=== PATIENT | female | born 1970 | race Caucasian/White ===

== ENCOUNTER 2023-07-30 11:58 | Inpatient (IN) | payer MEDICARE ==
[2023-07-30] VITALS (12 sets, daily range): BP systolic 55–164; BP diastolic 45–103; PULSE 42–89; RESP 6–22; TEMP 93.3–94.5; O2SAT 100
[~2023-07-30] VITALS: Ht 165.1 cm; Wt 104.3 kg
[~2023-07-30 11:58] MED LIST: ADDERALL 10 MG10 MG PO; ALBUTEROL SULFAT2 MG PO; AMLODIPINE BESY10 MG PO; COMPLEX B-1001 EACH PO; IBUPROFEN200 MG PO; KRILL OIL 1,001 EACH PO; LATUDA20 MG PO; LEVOTHYROXINE50 MCG PO; LEXAPRO20 MG PO; LISINOPRIL10 MG PO; LYRICA75 MG PO; PROVENTIL HFA6.7 GM INH; VALIUM10 MG PO; VITAMIN D3 COM1 EACH PO
[2023-07-30] MEDS ORDERED: CALCIUM CHLORIDE 10% 1.36 MEQ/ML 10ML SYR IV ONE (12:05)
[2023-07-30] MEDS ORDERED: EPINEPHRINE HCL SYRINGE ONE (12:05)
[2023-07-30] MEDS ORDERED: SODIUM BICARBONATE 8.4% INJ 50 ML SYR ONE (12:05)
[2023-07-30] MEDS ORDERED: ROCURONIUM BROMIDE 10 MG/ML 5ML VIAL IV ONE (12:11)
[2023-07-30] MEDS ORDERED: NEOSTIGMINE 1 MG/ML 10ML VIAL ONE ×2 (12:11→16:57)
[2023-07-30] MEDS ORDERED: SEVOFLURANE INHAL SOLN 250 ML PEN BTL ONE (12:11)
[2023-07-30] MEDS ORDERED: DEXAMETHASONE SOD PHOS INJ 4 MG/ML SDV ONE (12:11)
[2023-07-30] MEDS ORDERED: PROPOFOL IV EMULSION 10 MG/ML 20 ML VIAL ONE (12:11)
[2023-07-30] MEDS ORDERED: LIDOCAINE HCL 2% LOCAL INJ 5 ML SDV VIAL INJ ONE (12:11)
[2023-07-30] MEDS ORDERED: ONDANSETRON HCL INJ 2MG/ML 2ML 2 MG/ML VIAL ONE (12:11)
[2023-07-30] MEDS ORDERED: EPHEDRINE SULFATE INJ 50 MG/ML VIAL ONE (12:11)
[2023-07-30] MEDS ORDERED: GLYCOPYRROLATE INJ 0.2 MG/ML VIAL ONE (12:11)
[2023-07-30] MEDS ORDERED: MIDAZOLAM HCL 5 MG/ML VIAL ONE (12:16)
[2023-07-30] MEDS ORDERED: MIDAZOLAM HCL 2 MG/2 ML VIAL ONE ×2 (12:16→12:17)
[2023-07-30] MEDS ORDERED: CEFAZOLIN SODIUM 2 GM ONE (12:16)
[2023-07-30] MEDS ORDERED: LACTATED RINGER'S 1,000 ML ONE (12:16)
[2023-07-30] MEDS ORDERED: FENTANYL CITRATE/PF 100MCG/2 ML INJ ONE (12:17)
[2023-07-30] MEDS ORDERED: HEPARIN SOD/SOD CHLORIDE 1,000 ML ONE (12:26)
[2023-07-30] MEDS ORDERED: TYLENOL EXTRA500 MG PO (13:53)
[2023-07-30] MEDS ORDERED: MORPHINE SULFATE/PF 1 MG/1 ML 10ML VIAL ONE (14:25)
[2023-07-30] MEDS ORDERED: MORPHINE SULFATE 1 MG/ML 30ML PCA IV PRN (15:15)
[2023-07-30] MEDS: SODIUM CHLORIDE 0.9% 250ML IRRIG IR SCH ×3 (15:15→23:15)
[2023-07-30] MEDS ORDERED: NALOXONE HCL INJ 0.4 MG/ML AMP IV PRN (15:15)
[2023-07-30] MEDS ORDERED: DIPHENHYDRAMINE HCL INJ 50 MG/ML VIAL IM PRN (15:15)
[2023-07-30] MEDS ORDERED: ACETAMINOPHEN 1000 MG/100 ML IV PRN (15:15)
[2023-07-30] MEDS ORDERED: MANNITOL 25% 12.5GM/50ML 50 ML ONE (15:47)
[2023-07-30] MEDS ORDERED: MORPHINE SULFATE 1 MG/ML 30ML PCA ONE (16:06)
[2023-07-30] MEDS ORDERED: D5.45%NS/KCL 20MEQ 1,000 ML IV SCH (17:00)
[2023-07-30] MEDS ORDERED: ALBUMIN 25% 12.5GM 50ML 50 ML IV ONE (17:39)
[2023-07-30 17:49] LABS: BASOPHILS # (AUTO) 0.1 (0.0-0.1); BASOPHILS % 0.5 % (0.0-1.0); EOSINOPHILS # (AUTO) 0.2 (0.0-0.4); EOSINOPHILS % 1.6 % (0.0-6.0); HEMATOCRIT 36.3 % (34.2-44.1); HEMOGLOBIN 12.5 g/dL (12.0-16.0); LYMPHOCYTES # (AUTO) 1.8 (1.0-3.2); LYMPHOCYTES % 17.3 % (18.0-39.1); MEAN CORPUSCULAR HEMOGLOBIN 31.9 pg (28-32); MEAN CORPUSCULAR HGB CONC 34.4 g/dL (31-35); MEAN CORPUSCULAR VOLUME 92.6 fL (81-99); MONOCYTES # (AUTO) 0.4 (0.2-0.8); MONOCYTES % 3.7 % (4.4-11.3); NEUTROPHILS # (AUTO) 7.9 (2.1-6.9); NEUTROPHILS % 76.3 % (38.7-80.0); PLATELET COUNT 220 x10e3/uL (140-360); RED BLOOD COUNT 3.92 x10e6/uL (3.6-5.1); RED CELL DISTRIBUTION WIDTH 12.2 % (11.7-14.4); WHITE BLOOD COUNT 10.32 x10e3/uL (4.8-10.8)
[2023-07-30 17:54] LABS: ANION GAP 10.4 mmol/L (8-16); CREATININE, SERUM 0.8 mg/dL (0.57-1.11); POTASSIUM 4.4 mmol/L (3.5-5.1)
[2023-07-30 18:02] LABS: ABG HCO3 26 mmol/L (22-26); ABG PCO2 45 mmHg (35-45); ABG PH 7.36 (7.35-7.45); ABG PO2 111 mmHg (80-105); ABG TCO2 27
[2023-07-30] MEDS ORDERED: NOREPINEPHRINE 8 MG/D5W 250 ML ONE (18:30)
[2023-07-30] MEDS ORDERED: DEXTROSE 5% IV ONE (18:30)
[2023-07-30] MEDS ORDERED: VASOPRESSIN INJ 20 UNIT/ML VIAL ONE (18:30)
[2023-07-30] MEDS ORDERED: Morphine 2mg Syringe 2 MG/ML SYR IV PRN (20:15)
[2023-07-30] MEDS ORDERED: NOREPINEPHRINE 8 MG/D5W 250 ML 0 ML ONE (20:41)
[2023-07-30] MEDS: NOREPINEPHRINE 8 MG/D5W 250 ML 250 ML IV SCH (20:45)
[2023-07-30 20:54] LABS: BASOPHILS # (AUTO) 0.1 (0.0-0.1); BASOPHILS % 0.3 % (0.0-1.0); EOSINOPHILS # (AUTO) 0.1 (0.0-0.4); EOSINOPHILS % 0.4 % (0.0-6.0); HEMATOCRIT 35.3 % (34.2-44.1); LYMPHOCYTES # (AUTO) 1.6 (1.0-3.2); LYMPHOCYTES % 7.8 % (18.0-39.1); MEAN CORPUSCULAR HEMOGLOBIN 30.1 pg (28-32); MEAN CORPUSCULAR VOLUME 88.5 fL (81-99); MONOCYTES # (AUTO) 0.4 (0.2-0.8); NEUTROPHILS # (AUTO) 18.2 (2.1-6.9); NEUTROPHILS % 86.6 % (38.7-80.0); PLATELET COUNT 120 x10e3/uL (140-360); RED BLOOD COUNT 3.99 x10e6/uL (3.6-5.1); RED CELL DISTRIBUTION WIDTH 14.6 % (11.7-14.4); WHITE BLOOD COUNT 20.97 x10e3/uL (4.8-10.8)
[2023-07-30 21:07] LABS: INR 1.54; PROTHROMBIN TIME 19.4 seconds (11.9-14.5)
[2023-07-30 21:08] LABS: PARTIAL THROMBOPLASTIN TIME 33.4 seconds (23.8-35.5)
[2023-07-30 21:15] LABS: ALBUMIN 1.9 g/dL (3.5-5.0); ALBUMIN/GLOBULIN RATIO 1.6 (0.8-2.0); ANION GAP 13.7 mmol/L (8-16); CALCIUM 7.3 mg/dL (8.4-10.2); CREATININE, SERUM 0.98 mg/dL (0.57-1.11); POTASSIUM 4.7 mmol/L (3.5-5.1)
[2023-07-30] MEDS ORDERED: IPRATROPIUM BROMIDE 0.02% 2.5 ML NEB NEB PRN (21:15)
[2023-07-30] MEDS ORDERED: HYDRALAZINE HCL 20 MG/ML VIAL IV PRN (21:15)
[2023-07-30 22:09] LABS: ABG HCO3 24 mmol/L (22-26); ABG PCO2 56 mmHg (35-45); ABG PH 7.24 (7.35-7.45); ABG PO2 342 mmHg (80-105); ABG TCO2 26
[2023-07-30] MEDS ORDERED: LORAZEPAM INJ 2 MG/ML VIAL IV PRN (23:15)
[2023-07-30] MEDS: FENTANYL CITRATE/PF 100MCG/2 ML INJ IV PRN (23:37)
[2023-07-31] VITALS (92 sets, daily range): BP systolic 82–127; BP diastolic 54–81; PULSE 54–108; RESP 4–26; TEMP 98.1–99.6; O2SAT 88–100
[2023-07-31] MEDS ORDERED: FENTANYL CITRATE IV PRN ×3 (00:45)
[2023-07-31] MEDS ORDERED: FENTANYL IV PRN ×3 (00:45)
[2023-07-31] MEDS ORDERED: [UNRECOGNIZED DRUG - OTHER] IV PRN ×3 (00:45)
[2023-07-31] MEDS ORDERED: FENTANYL 2000MCG/NS 250 250 ML IV PRN ×2 (01:00→01:15)
[2023-07-31 01:18] LABS: BASOPHILS % 0.2 % (0.0-1.0); HEMATOCRIT 33.1 % (34.2-44.1); LYMPHOCYTES # (AUTO) 0.6 (1.0-3.2); LYMPHOCYTES % 3.3 % (18.0-39.1); MEAN CORPUSCULAR HGB CONC 36.3 g/dL (31-35); MEAN CORPUSCULAR VOLUME 82.8 fL (81-99); NEUTROPHILS # (AUTO) 17.1 (2.1-6.9); NEUTROPHILS % 90.3 % (38.7-80.0); PLATELET COUNT 130 x10e3/uL (140-360); RED CELL DISTRIBUTION WIDTH 14.5 % (11.7-14.4); WHITE BLOOD COUNT 18.96 x10e3/uL (4.8-10.8)
[2023-07-31 01:22] LABS: ABG HCO3 26 mmol/L (22-26); ABG PCO2 36 mmHg (35-45); ABG PH 7.47 (7.35-7.45); ABG PO2 188 mmHg (80-105); ABG TCO2 27
[2023-07-31 01:27] LABS: INR 1.19; PROTHROMBIN TIME 15.8 seconds (11.9-14.5)
[2023-07-31 01:28] LABS: PARTIAL THROMBOPLASTIN TIME 26.8 seconds (23.8-35.5)
[2023-07-31] MEDS: SODIUM CHLORIDE 0.9% 1000ML 1,000 ML IV SCH ×4 (02:00→23:41)
[2023-07-31] MEDS: SODIUM CHLORIDE 0.9% 250ML IRRIG IR SCH ×7 (03:36→23:19)
[2023-07-31 06:39] LABS: BASOPHILS % 0.2 % (0.0-1.0); HEMATOCRIT 33.7 % (34.2-44.1); HEMOGLOBIN 11.9 g/dL (12.0-16.0); LYMPHOCYTES # (AUTO) 0.8 (1.0-3.2); LYMPHOCYTES % 4.8 % (18.0-39.1); MEAN CORPUSCULAR HGB CONC 35.3 g/dL (31-35); MEAN CORPUSCULAR VOLUME 84.9 fL (81-99); MONOCYTES % 5.7 % (4.4-11.3); NEUTROPHILS % 88.4 % (38.7-80.0); PLATELET COUNT 122 x10e3/uL (140-360); RED BLOOD COUNT 3.97 x10e6/uL (3.6-5.1); RED CELL DISTRIBUTION WIDTH 15.3 % (11.7-14.4); WHITE BLOOD COUNT 16.98 x10e3/uL (4.8-10.8)
[2023-07-31 06:58] LABS: ALBUMIN 3.2 g/dL (3.5-5.0); ALBUMIN/GLOBULIN RATIO 1.7 (0.8-2.0); ANION GAP 13.1 mmol/L (8-16); CALCIUM 8.5 mg/dL (8.4-10.2); CREATININE, SERUM 1.27 mg/dL (0.57-1.11); POTASSIUM 5.1 mmol/L (3.5-5.1)
[2023-07-31] MEDS: FAMOTIDINE 20 MG/2 ML VIAL IV SCH ×2 (08:57→16:47)
[2023-07-31] MEDS ORDERED: SODIUM CHLORIDE 0.9% IV ONE (13:00)
[2023-07-31] MEDS: FENTANYL CITRATE/PF 100MCG/2 ML INJ IV PRN ×4 (16:12→23:18)
[2023-07-31] MEDS: NOREPINEPHRINE 8 MG/D5W 250 ML 250 ML IV SCH (20:45)
[2023-08-01] VITALS (47 sets, daily range): BP systolic 108–140; BP diastolic 63–120; PULSE 67–95; RESP 9–28; TEMP 99.1–99.5; O2SAT 90–98
[2023-08-01] MEDS: FENTANYL CITRATE/PF 100MCG/2 ML INJ IV PRN ×9 (02:19→21:59)
[2023-08-01] MEDS: SODIUM CHLORIDE 0.9% 250ML IRRIG IR SCH ×5 (03:15→14:21)
[2023-08-01 06:36] LABS: ANION GAP 11.5 mmol/L (8-16); CALCIUM 8.3 mg/dL (8.4-10.2); CREATININE, SERUM 0.99 mg/dL (0.57-1.11); POTASSIUM 4.5 mmol/L (3.5-5.1)
[2023-08-01 06:48] LABS: BASOPHILS % 0.3 % (0.0-1.0); EOSINOPHILS # (AUTO) 0.1 (0.0-0.4); EOSINOPHILS % 0.5 % (0.0-6.0); HEMATOCRIT 27.7 % (34.2-44.1); HEMOGLOBIN 9.8 g/dL (12.0-16.0); LYMPHOCYTES % 18.7 % (18.0-39.1); MEAN CORPUSCULAR HEMOGLOBIN 30.3 pg (28-32); MEAN CORPUSCULAR HGB CONC 35.4 g/dL (31-35); MEAN CORPUSCULAR VOLUME 85.8 fL (81-99); MONOCYTES # (AUTO) 0.8 (0.2-0.8); MONOCYTES % 7.3 % (4.4-11.3); NEUTROPHILS # (AUTO) 7.6 (2.1-6.9); NEUTROPHILS % 72.8 % (38.7-80.0); RED BLOOD COUNT 3.23 x10e6/uL (3.6-5.1); WHITE BLOOD COUNT 10.43 x10e3/uL (4.8-10.8)
[2023-08-01 06:49] LABS: PLATELET COUNT 79 x10e3/uL (140-360)
[2023-08-01] MEDS: FAMOTIDINE 20 MG/2 ML VIAL IV SCH ×2 (09:00→14:21)
[2023-08-01] MEDS: SODIUM CHLORIDE 0.9% 1000ML 1,000 ML IV SCH ×2 (10:01→19:51)
[2023-08-01] MEDS: ONDANSETRON HCL INJ 2MG/ML 2ML 2 MG/ML VIAL IV PRN (17:28)
[2023-08-01] MEDS: NOREPINEPHRINE 8 MG/D5W 250 ML 250 ML IV SCH (20:45)
[2023-08-02] VITALS (21 sets, daily range): BP systolic 103–137; BP diastolic 55–90; PULSE 75–94; RESP 17–28; TEMP 98.2–98.9; O2SAT 87–99
[2023-08-02] MEDS: FENTANYL CITRATE/PF 100MCG/2 ML INJ IV PRN ×4 (00:44→10:34)
[2023-08-02 05:38] LABS: BASOPHILS % 0.4 % (0.0-1.0); EOSINOPHILS # (AUTO) 0.1 (0.0-0.4); HEMATOCRIT 28.1 % (34.2-44.1); HEMOGLOBIN 9.9 g/dL (12.0-16.0); LYMPHOCYTES # (AUTO) 1.6 (1.0-3.2); LYMPHOCYTES % 16.3 % (18.0-39.1); MEAN CORPUSCULAR HEMOGLOBIN 30.2 pg (28-32); MEAN CORPUSCULAR HGB CONC 35.2 g/dL (31-35); MEAN CORPUSCULAR VOLUME 85.7 fL (81-99); MONOCYTES # (AUTO) 0.7 (0.2-0.8); MONOCYTES % 7.4 % (4.4-11.3); NEUTROPHILS # (AUTO) 7.3 (2.1-6.9); NEUTROPHILS % 74.3 % (38.7-80.0); PLATELET COUNT 73 x10e3/uL (140-360); RED BLOOD COUNT 3.28 x10e6/uL (3.6-5.1); WHITE BLOOD COUNT 9.78 x10e3/uL (4.8-10.8)
[2023-08-02 05:48] LABS: ANION GAP 11.4 mmol/L (8-16); CALCIUM 8.5 mg/dL (8.4-10.2); CREATININE, SERUM 0.86 mg/dL (0.57-1.11); POTASSIUM 4.4 mmol/L (3.5-5.1)
[2023-08-02] MEDS: SODIUM CHLORIDE 0.9% 1000ML 1,000 ML IV SCH ×2 (06:23→20:07)
[2023-08-02] MEDS: MUPIROCIN 2% OINT 22 GM TUBE TOP SCH ×2 (07:18→20:05)
[2023-08-02] MEDS: ONDANSETRON HCL INJ 2MG/ML 2ML 2 MG/ML VIAL IV PRN (07:18)
[2023-08-02] MEDS: ALBUTEROL SULF 0.083% NEB SOLN 3 ML NEB NEB PRN ×2 (07:37→20:01)
[2023-08-02] MEDS ORDERED: ACETAMINOPHEN/CODEINE 300MG - 30MG TAB PO PRN (09:00)
[2023-08-02] MEDS: SENNA-S TABLET PO SCH ×2 (09:52→17:26)
[2023-08-02] MEDS ORDERED: KETOROLAC TROMETHAMINE 30 MG/ML VIAL IV PRN (19:00)
[2023-08-02] MEDS: HYDROCODONE/APAP 7.5MG-325MG 1 EA TAB PO PRN (20:05)
[2023-08-02] MEDS: NOREPINEPHRINE 8 MG/D5W 250 ML 250 ML IV SCH (20:45)
[2023-08-03] VITALS (11 sets, daily range): BP systolic 114–130; BP diastolic 74–87; PULSE 86–110; RESP 18–22; TEMP 98–98.8; O2SAT 94–99
[2023-08-03] MEDS: HYDROCODONE/APAP 7.5MG-325MG 1 EA TAB PO PRN (00:36)
[2023-08-03] MEDS: ALBUTEROL SULF 0.083% NEB SOLN 3 ML NEB NEB PRN (01:10)
[2023-08-03] MEDS: Morphine 2mg Syringe 2 MG/ML SYR IV PRN ×2 (01:56→06:13)
[2023-08-03 05:27] LABS: BASOPHILS % 0.5 % (0.0-1.0); EOSINOPHILS # (AUTO) 0.1 (0.0-0.4); EOSINOPHILS % 1.5 % (0.0-6.0); HEMOGLOBIN 10.2 g/dL (12.0-16.0); LYMPHOCYTES # (AUTO) 1.1 (1.0-3.2); LYMPHOCYTES % 14.1 % (18.0-39.1); MEAN CORPUSCULAR HEMOGLOBIN 30.2 pg (28-32); MEAN CORPUSCULAR HGB CONC 35.2 g/dL (31-35); MEAN CORPUSCULAR VOLUME 85.8 fL (81-99); MONOCYTES # (AUTO) 0.6 (0.2-0.8); MONOCYTES % 8.2 % (4.4-11.3); NEUTROPHILS # (AUTO) 5.9 (2.1-6.9); NEUTROPHILS % 75.2 % (38.7-80.0); PLATELET COUNT 114 x10e3/uL (140-360); RED BLOOD COUNT 3.38 x10e6/uL (3.6-5.1); RED CELL DISTRIBUTION WIDTH 13.9 % (11.7-14.4); WHITE BLOOD COUNT 7.81 x10e3/uL (4.8-10.8)
[2023-08-03 05:53] LABS: ANION GAP 10.6 mmol/L (8-16); CALCIUM 8.6 mg/dL (8.4-10.2); CREATININE, SERUM 0.85 mg/dL (0.57-1.11); POTASSIUM 3.6 mmol/L (3.5-5.1)
[2023-08-03] MEDS: SODIUM CHLORIDE 0.9% 1000ML 1,000 ML IV SCH (06:13)
[2023-08-03] MEDS ORDERED: ALBUTEROL/IPRATROPIUM 3 ML NEB NEB PRN (09:00)
[2023-08-03] MEDS: MUPIROCIN 2% OINT 22 GM TUBE TOP SCH ×2 (09:00→22:18)
[2023-08-03] MEDS ORDERED: ACETAMINOPHEN 325 MG TAB PO PRN (09:00)
[2023-08-03] MEDS: ALBUTEROL/IPRATROPIUM 3 ML NEB NEB SCH ×3 (10:01→19:00)
[2023-08-03] MEDS: GUAIFENESIN 600 MG TAB PO SCH ×2 (12:10→16:39)
[2023-08-03] MEDS: FAMOTIDINE 20 MG TAB PO SCH ×2 (12:10→16:39)
[2023-08-03] MEDS: SENNA-S TABLET PO SCH ×2 (12:10→16:39)
[2023-08-03] MEDS: ONDANSETRON HCL INJ 2MG/ML 2ML 2 MG/ML VIAL IV PRN (22:18)
[2023-08-04] VITALS (9 sets, daily range): BP systolic 99–138; BP diastolic 67–88; PULSE 75–108; RESP 18–20; TEMP 97.9–98.1; O2SAT 92–100
[2023-08-04] MEDS: ALBUTEROL/IPRATROPIUM 3 ML NEB NEB SCH ×4 (01:00→18:59)
[2023-08-04] MEDS: HYDROCODONE/APAP 7.5MG-325MG 1 EA TAB PO PRN ×3 (06:17→20:07)
[2023-08-04] MEDS: FAMOTIDINE 20 MG TAB PO SCH ×2 (07:51→17:24)
[2023-08-04] MEDS: MUPIROCIN 2% OINT 22 GM TUBE TOP SCH ×2 (08:42→21:18)
[2023-08-04] MEDS: GUAIFENESIN 600 MG TAB PO SCH ×2 (08:50→17:25)
[2023-08-04] MEDS: SENNA-S TABLET PO SCH ×2 (08:50→17:25)
[2023-08-04] MEDS: ONDANSETRON HCL INJ 2MG/ML 2ML 2 MG/ML VIAL IV PRN (14:11)
[2023-08-04] MEDS: Morphine 2mg Syringe 2 MG/ML SYR IV PRN ×2 (14:13→20:16)
[2023-08-04] MEDS: MELATONIN 3 MG TAB PO PRN (23:41)
[2023-08-05] VITALS (9 sets, daily range): BP systolic 108–126; BP diastolic 72–83; PULSE 73–98; RESP 18–20; TEMP 98–98.4; O2SAT 92–100
[2023-08-05] MEDS: ALBUTEROL/IPRATROPIUM 3 ML NEB NEB SCH ×4 (01:00→19:15)
[2023-08-05] MEDS: Morphine 2mg Syringe 2 MG/ML SYR IV PRN ×3 (06:48→19:41)
[2023-08-05] MEDS: MUPIROCIN 2% OINT 22 GM TUBE TOP SCH ×2 (08:37→21:03)
[2023-08-05] MEDS: GUAIFENESIN 600 MG TAB PO SCH ×2 (08:37→15:52)
[2023-08-05] MEDS: FAMOTIDINE 20 MG TAB PO SCH ×2 (08:37→15:52)
[2023-08-05] MEDS: SENNA-S TABLET PO SCH ×2 (08:37→15:52)
[2023-08-05 09:24] LABS: BASOPHILS # (AUTO) 0.1 (0.0-0.1); BASOPHILS % 0.7 % (0.0-1.0); EOSINOPHILS # (AUTO) 0.3 (0.0-0.4); EOSINOPHILS % 4.1 % (0.0-6.0); HEMATOCRIT 32.4 % (34.2-44.1); HEMOGLOBIN 11.2 g/dL (12.0-16.0); LYMPHOCYTES # (AUTO) 1.5 (1.0-3.2); LYMPHOCYTES % 17.7 % (18.0-39.1); MEAN CORPUSCULAR HEMOGLOBIN 30.1 pg (28-32); MEAN CORPUSCULAR HGB CONC 34.6 g/dL (31-35); MEAN CORPUSCULAR VOLUME 87.1 fL (81-99); MONOCYTES # (AUTO) 0.7 (0.2-0.8); MONOCYTES % 8.5 % (4.4-11.3); NEUTROPHILS # (AUTO) 5.7 (2.1-6.9); NEUTROPHILS % 67.9 % (38.7-80.0); PLATELET COUNT 208 x10e3/uL (140-360); RED BLOOD COUNT 3.72 x10e6/uL (3.6-5.1); RED CELL DISTRIBUTION WIDTH 14.2 % (11.7-14.4); WHITE BLOOD COUNT 8.37 x10e3/uL (4.8-10.8)
[2023-08-05 09:39] LABS: INR 0.99; PARTIAL THROMBOPLASTIN TIME 25.2 seconds (23.8-35.5); PROTHROMBIN TIME 13.7 seconds (11.9-14.5)
[2023-08-05 09:45] LABS: ANION GAP 12.2 mmol/L (8-16); CALCIUM 8.9 mg/dL (8.4-10.2); CREATININE, SERUM 0.87 mg/dL (0.57-1.11); MAGNESIUM 1.9 MG/DL (1.3-2.1); POTASSIUM 4.2 mmol/L (3.5-5.1)
[2023-08-05] MEDS: HYDROCODONE/APAP 7.5MG-325MG 1 EA TAB PO PRN ×2 (11:21→21:54)
[2023-08-06] VITALS (12 sets, daily range): BP systolic 121–136; BP diastolic 64–92; PULSE 71–104; RESP 18–21; TEMP 97.5–98.4; O2SAT 92–98
[2023-08-06] MEDS: ALBUTEROL/IPRATROPIUM 3 ML NEB NEB SCH ×5 (01:00→22:37)
[2023-08-06] MEDS: HYDROCODONE/APAP 7.5MG-325MG 1 EA TAB PO PRN (05:05)
[2023-08-06] MEDS ORDERED: DIAZEPAM 5 MG TAB PO PRN (08:30)
[2023-08-06] MEDS: FAMOTIDINE 20 MG TAB PO SCH ×2 (09:29→16:36)
[2023-08-06] MEDS ORDERED: ONDANSETRON HCL 4 MG ORAL DISINTEGRATING TAB PO PRN (09:30)
[2023-08-06] MEDS: PREGABALIN 50 MG CAP PO SCH ×2 (09:30→16:36)
[2023-08-06] MEDS: GUAIFENESIN 600 MG TAB PO SCH ×2 (09:30→16:36)
[2023-08-06] MEDS: ESCITALOPRAM OXALATE 10 MG TAB PO SCH (09:30)
[2023-08-06] MEDS: LEVOTHYROXINE SODIUM 50 MCG TAB PO SCH (09:30)
[2023-08-06] MEDS: SENNA-S TABLET PO SCH ×2 (09:30→16:36)
[2023-08-06] MEDS: MUPIROCIN 2% OINT 22 GM TUBE TOP SCH ×2 (09:31→21:00)
[2023-08-06] MEDS: Morphine 2mg Syringe 2 MG/ML SYR IV PRN ×2 (14:09→22:17)
[2023-08-06] MEDS: MELATONIN 3 MG TAB PO PRN (22:16)
[2023-08-07] VITALS: BP 126/79; PULSE 87; RESP 20; TEMP 98.8; O2SAT 97
[2023-08-07] MEDS: Morphine 2mg Syringe 2 MG/ML SYR IV PRN (03:35)
[2023-08-07 04:18] VITALS: BP 125/77; PULSE 77; RESP 20; TEMP 98.1; O2SAT 97
[2023-08-07 05:41] LABS: BASOPHILS # (AUTO) 0.1 (0.0-0.1); EOSINOPHILS # (AUTO) 0.4 (0.0-0.4); EOSINOPHILS % 4.3 % (0.0-6.0); HEMATOCRIT 30.9 % (34.2-44.1); HEMOGLOBIN 11.3 g/dL (12.0-16.0); LYMPHOCYTES # (AUTO) 1.7 (1.0-3.2); LYMPHOCYTES % 21.2 % (18.0-39.1); MEAN CORPUSCULAR HEMOGLOBIN 32.9 pg (28-32); MEAN CORPUSCULAR HGB CONC 36.6 g/dL (31-35); MEAN CORPUSCULAR VOLUME 90.1 fL (81-99); MONOCYTES # (AUTO) 0.9 (0.2-0.8); MONOCYTES % 11.2 % (4.4-11.3); NEUTROPHILS # (AUTO) 4.9 (2.1-6.9); NEUTROPHILS % 60.2 % (38.7-80.0); PLATELET COUNT 215 x10e3/uL (140-360); RED BLOOD COUNT 3.43 x10e6/uL (3.6-5.1); RED CELL DISTRIBUTION WIDTH 15.2 % (11.7-14.4)
[2023-08-07] MEDS: LEVOTHYROXINE SODIUM 50 MCG TAB PO SCH (05:47)
[2023-08-07 06:12] LABS: ANION GAP 12.1 mmol/L (8-16); CREATININE, SERUM 0.81 mg/dL (0.57-1.11); POTASSIUM 4.1 mmol/L (3.5-5.1)
[2023-08-07 07:48] VITALS: PULSE 78; RESP 20; O2SAT 97
[2023-08-07] MEDS: ALBUTEROL/IPRATROPIUM 3 ML NEB NEB SCH (07:49)
[2023-08-07 07:58] VITALS: BP 132/76; PULSE 79; RESP 20; TEMP 98; O2SAT 98
[2023-08-07 08:47] VITALS: BP 132/76; PULSE 79; RESP 20; TEMP 98; O2SAT 98
[2023-08-07] MEDS: ESCITALOPRAM OXALATE 10 MG TAB PO SCH (10:02)
[2023-08-07] MEDS: MUPIROCIN 2% OINT 22 GM TUBE TOP SCH (10:02)
[2023-08-07] MEDS: GUAIFENESIN 600 MG TAB PO SCH (10:02)
[2023-08-07] MEDS: PREGABALIN 50 MG CAP PO SCH (10:02)
[2023-08-07] MEDS: HYDROCODONE/APAP 7.5MG-325MG 1 EA TAB PO PRN (10:03)
[2023-08-07] MEDS: SENNA-S TABLET PO SCH (10:03)
[2023-08-07] MEDS: FAMOTIDINE 20 MG TAB PO SCH (10:03)
== END 2023-08-07 11:56 | disposition home or self-care (01) | DRG 656 ==
LOC: OR 11:58 → PACU V 15:06 → ICU 20:09 → MED/SURG 08-02 14:42
PROVIDERS: ADMIT Internal Medicine; ATTEND Internal Medicine
PROC: 0TT10ZZ Resection of Left Kidney, Open Approach (ICD-10-PCS; 2023-07-30)
PROC: 4A033R1 Measurement of Arterial Saturation, Peripheral, Percutaneous Approach (ICD-10-PCS; 2023-07-30)
PROC: 4A043R1 Measurement of Venous Saturation, Peripheral, Percutaneous Approach (ICD-10-PCS; 2023-07-30)
PROC: 3E043XZ Introduction of Vasopressor into Central Vein, Percutaneous Approach (ICD-10-PCS; 2023-07-30)
PROC: 30243K1 Transfusion of Nonautologous Frozen Plasma into Central Vein, Percutaneous Approach (ICD-10-PCS; 2023-07-30)
PROC: 30243N1 Transfusion of Nonautologous Red Blood Cells into Central Vein, Percutaneous Approach (ICD-10-PCS; 2023-07-30)
PROC: 5A12012 Performance of Cardiac Output, Single, Manual (ICD-10-PCS; 2023-07-30)
PROC: 0W9H0ZZ Drainage of Retroperitoneum, Open Approach (ICD-10-PCS; 2023-07-30)
PROC: 0TB10ZZ Excision of Left Kidney, Open Approach (ICD-10-PCS; principal; 2023-07-30 14:44)
PROC: 5A1935Z Respiratory Ventilation, Less than 24 Consecutive Hours (ICD-10-PCS; 2023-07-31)
PROC: 0BH17EZ Insertion of Endotracheal Airway into Trachea, Via Natural or Artificial Opening (ICD-10-PCS; 2023-07-31)
DX: C64.2 Malignant neoplasm of left kidney, except renal pelvis (principal); I46.9 Cardiac arrest, cause unspecified; J69.0 Pneumonitis due to inhalation of food and vomit; J95.821 Acute postprocedural respiratory failure; R57.1 Hypovolemic shock; D62 Acute posthemorrhagic anemia; N17.9 Acute kidney failure, unspecified; D68.8 Other specified coagulation defects; N99.820 Postprocedural hemorrhage of a genitourinary system organ or structure following a genitourinary system procedure; J44.1 Chronic obstructive pulmonary disease with (acute) exacerbation; I95.81 Postprocedural hypotension; G89.4 Chronic pain syndrome; J98.4 Other disorders of lung; F98.8 Other specified behavioral and emotional disorders with onset usually occurring in childhood and adolescence; F42.9 Obsessive-compulsive disorder, unspecified; F31.9 Bipolar disorder, unspecified; G62.9 Polyneuropathy, unspecified; F41.9 Anxiety disorder, unspecified; I10 Essential (primary) hypertension; F17.200 Nicotine dependence, unspecified, uncomplicated; E66.01 Morbid (severe) obesity due to excess calories; Z68.39 Body mass index [BMI] 39.0-39.9, adult; Y83.8 Other surgical procedures as the cause of abnormal reaction of the patient, or of later complication, without mention of misadventure at the time of the procedure; Y92.238 Other place in hospital as the place of occurrence of the external cause; N39.46 Mixed incontinence; R35.1 Nocturia; N28.1 Cyst of kidney, acquired; R31.29 Other microscopic hematuria
CPT/HCPCS: 31500; 36415; 36600; 71045; 71250; 80048; 80053; 82805; 83735; 85025; 85384; 85610; 85730; 86850; 86900; 88304; 88307; 88311; 88342; 92950; 93005; 94003; 94640; 94799; 99252; J0171; J0690; J0696; J1100; J2001; J2060; J2150; J2250; J2270; J2405; J2710; J7030